=== PATIENT | male | born 1995 | race Caucasian/White ===

== ENCOUNTER 2020-04-06 15:53 | Observation (INO) | payer OTHER ==
[2020-04-06] MEDS ORDERED: Ondansetron PF 4 MG/2 ML Vial ONE (18:20)
[2020-04-06] MEDS ORDERED: Ondansetron PF 4 MG/2 ML Vial IVP PRN (18:25)
[2020-04-06] MEDS ORDERED: levETIRAcetam in NS 1,000 MG in Premix Bag 1 BAG IVPB SCH (18:30)
--- NOTE | 2020-04-06 18:34 | PDOC.HHP ---
Hospitalist HPI - History of Present Illness Seizure History of Present Illness: Patient is a 24-year-old male who is generally healthy and has no significant past medical history. Patient was walking through [employer] today where he was intending to by a soccer ball when he had the onset of generalized convulsions. He fell to the ground and hit his head. He was told he hit the back of his head but is sore over the right temporal area. The next thing he recalls is that he was waking up to the ambulance being there and starting an IV. The patient was initially taken to the [facility] emergency department. There he had a CT scan of the brain which showed 2 punctate areas in the right temporal area concerning for possible tiny bleeds. Neurosurgery was consulted via phone and recommended the patient be transferred to this facility. I have also recommended a repeat CT scan which will be done shortly. The patient reports that he has never had any prior history of seizures. He denies any prior history of significant head injury. He is unaware of having had any prior concussions. He felt completely normal up until the time of the seizure. Since he has been here he has had some nausea and vomiting and had some of this during the course of my interview with him. He denies having had any recent illness. He has been eating and drinking well. He denies any significant stressors. Hospitalist ROS - Review of Systems Constitutional: denies: fever, chills Respiratory: denies: shortness of breath Gastrointestinal: reports: nausea, vomiting. denies: abdominal pain Neurological: reports: seizures All other systems reviewed; all pertinent +/- noted in HPI/Subj - Medication Medications: None Hospitalist History - Past Medical History Source: patient, mother Other Medical History: Patient's mother recounts that the patient's father and his sister had some Ash's and that the son, the patient, had something similar when he was younger and required medicines but has not been on any for a long while. - Past Surgical History Past Surgical History: reports: no pertinent history - Family History Family History: reports: no pertinent history - Social History Smoking Status: Never smoker Alcohol: reports: Rare Drugs: reports: none - Exam General Appearance: NAD, awake alert General - other findings: Had some nausea vomiting during the interview. Eye: PERRL, anicteric sclera ENT: no oropharyngeal lesions, moist mucosa ENT - other findings: Tenderness to palpation over the right temporal area. ? slight edema Neck: supple, symmetric, no JVD, no thyromegaly, no lymphadenopathy, no carotid bruit Heart: RRR, no murmur, no gallops, no rubs, normal peripheral pulses Respiratory: CTAB, no wheezes, no rales, no ronchi, normal chest expansion, no tachypnea, normal percussion Gastrointestinal: soft, non-tender, non-distended, normal bowel sounds, no palpable masses, no hepatomegaly, no splenomegaly, no bruit Extremities: no cyanosis, no clubbing, no edema Skin: normal turgor Neurological: no focal deficits Musculoskeletal: normal tone, normal strength, no muscle wasting Psychiatric: normal affect, normal behavior, A&O x 3 Hospitalist Results - Labs Lab results: Labs reviewed from [facility] emergency department are essentially negative with exception of a CO2 of 20. Liver enzymes slightly elevated. Hospitalist H&P A/P - Problem (1) Seizure Code(s): R56.9 - UNSPECIFIED CONVULSIONS Status: Acute (2) Abnormal CT of brain Code(s): R90.89 - OTH ABNORMAL FINDINGS ON DIAGNOSTIC IMAGING OF CNSL Status: Acute (3) Elevated liver enzymes Code(s): R74.8 - ABNORMAL LEVELS OF OTHER SERUM ENZYMES Status: Acute (4) Head contusion Code(s): S00.93XA - CONTUSION OF UNSPECIFIED PART OF HEAD, INITIAL ENCOUNTER Status: Acute (5) Nausea & vomiting Code(s): R11.2 - NAUSEA WITH VOMITING, UNSPECIFIED Status: Acute - Plan Plan: Seizure: Patient has new onset seizure. Etiology is unclear. Patient does not appear to have any precipitating factors. He has no evidence of underlying illness. CT scan findings more likely related to the head contusion as a result of the fall from the seizure rather than the seizure itself. Labs were generally unremarkable other than slight elevation of his liver enzymes. He has no prior head injury to precipitate potential seizures. Will load with Keppra 1000 mg IV x1. Initiate Keppra 500 mg p.o. twice daily. MRI of the brain and EEG tomorrow. Neurology consult. Abnormal CT scan of the brain: Patient has a couple of punctate lesions on the right temporal area more likely related to punctate bleeds from right head contusion. Getting a repeat CT scan shortly. Neurosurgery following. Head contusion: Patient is applying ice. Would like some pain medication so we will give him some low-dose morphine. This is a result of injury from his fall. May have some concussion symptoms resulting in the nausea vomiting. Nausea vomiting: May be the result of the head contusion or seizure. Treat symptomatically. Elevated liver enzymes: Very mild elevation. We will repeat labs in the morning. If they continue to be elevated will need to consider an ultrasound. Possible he could have some contusion related to the fall.
--- NOTE | 2020-04-06 19:25 | CT ---
EXAM: CT brain without contrast HISTORY: New onset seizure with head trauma COMPARISON: 04/06/2020 5:35 PM TECHNIQUE: Multiple contiguous axial images were obtained and a CT of the brain without contrast. FINDINGS: There are stable areas of hyperdensity along the lateral aspect of the right middle cranial fossa. This could represent a small amount of extra-axial hemorrhage. No midline shift or downward herniation is seen. The calvarium and overlying soft tissues are unremarkable. The visualized paranasal sinuses and masto id air cells are well aerated. IMPRESSION: Likely small amount of stable extra-axial blood in the right middle cranial fossa.
[2020-04-06] MEDS ORDERED: levETIRAcetam in NS 100 ML ONE (19:52)
[2020-04-06] MEDS: Sodium Chloride 0.9% 1,000 ML IV SCH (20:00)
[2020-04-06] MEDS ORDERED: Famotidine 20 MG TAB ONE (21:54)
[2020-04-06] MEDS: Famotidine 20 MG TAB PO SCH (22:00)
[2020-04-06] MEDS ORDERED: Morphine 2 MG/ML VIAL ONE (22:11)
[2020-04-06] MEDS: levETIRAcetam 500 MG TAB PO SCH (22:16)
[2020-04-06] MEDS: Morphine 2 MG/ML VIAL SLOW IVP PRN (22:18)
[2020-04-07] MEDS ORDERED: Ondansetron PF 4 MG/2 ML Vial ONE (03:16)
[2020-04-07] MEDS ORDERED: Morphine 2 MG/ML VIAL ONE ×2 (03:16→09:53)
[2020-04-07] MEDS: Morphine 2 MG/ML VIAL SLOW IVP PRN ×2 (03:20→09:48)
[2020-04-07] MEDS: Ondansetron ODT 4 MG TAB PO PRN ×3 (03:22→14:57)
[2020-04-07 04:42] LABS: #Eosinphils 0.1 thou/uL (0.0-0.7); #Lymphocytes 1.3 thou/uL (1.20-3.40); #Monocytes 1.3 thou/uL (0.11-0.59); #Neutrophils 9.3 thou/uL (1.40-6.50); %Basophils 0.3 % (0.0-1.0); %Eosinophils 0.8 % (0.0-10.0); %Lymphocytes 10.6 % (21.0-51.0); %Neutrophils 77.3 % (42.0-75.0); Hemoglobin 15.2 g/dL (14.0-18.0); Mean Corpuscular HGB CONC 33.9 g/dL (32.0-36.0); Mean Corpuscular Hemoglobin 31.9 pg (27.0-31.0); Mean Corpuscular Volume 94.2 fL (78.0-98.0); Mean Platelet Volume 6.2 fL (7.4-10.4); Platelet Count 241 thou/uL (130-400); RBC Distribution Width 11.4 % (11.5-14.5); Red Blood Cell (RBC) Count 4.77 mill/uL (4.70-6.10)
[2020-04-07 05:05] LABS: ALT (SGPT) 55 U/L (8-55); AST (SGOT) 26 U/L (5-34); Albumin 4.1 g/dL (3.5-5.0); Alkaline Phosphatase 88 U/L (40-110); Anion Gap 11 mmol/L (10-20); BUN (Urea Nitrogen) 8 mg/dL (8.9-20.6); Bilirubin, Total 0.8 mg/dL (0.2-1.2); Calc. Creatinine Clearance 0 mL/min (70-130); Calcium 9.1 mg/dL (7.8-10.44); Carbon Dioxide 28 mmol/L (22-29); Chloride 101 mmol/L (98-107); Estimated GFR-MDRD Greater than 90; Globulin 2.4 g/dL (2.4-3.5); Glucose 109 mg/dL (70-105); Potassium 4.2 mmol/L (3.5-5.1); Protein, Total 6.5 g/dL (6.0-8.3); Sodium 136 mmol/L (136-145)
[2020-04-07 05:34] LABS: SARS-CoV-2 MS2 Positive; SARS-CoV-2 N Gene Negative; SARS-CoV-2 S Gene Negative; SARS-CoV-2 by NAA Not Detected (NotDetected); SARS-CoV-2 orf1ab Negative
[2020-04-07] MEDS: Sodium Chloride 0.9% 1,000 ML IV SCH (08:06)
--- NOTE | 2020-04-07 08:45 | PDOC.HOSPP ---
- Subjective Encounter Date: 04/07/20 Encounter Time: 11:00 Subjective: Patient with some mild blurred vision, slow thinking, and mild headache on and off. No further seizures. - Objective Result Diagrams: 04/07/20 04:31 04/07/20 04:31 Hospitalist ROS - Review of Systems Constitutional: denies: fever, chills, weakness Respiratory: denies: cough, shortness of breath Cardiovascular: denies: chest pain, palpitations Gastrointestinal: denies: nausea, vomiting, abdominal pain Musculoskeletal: denies: neck pain, back pain Neurological: denies: weakness, change in speech, confusion, seizures - Medication Medications: Active Medications Generic Name Dose Route Start Last Admin Trade Name Freq PRN Reason Stop Dose Admin Famotidine 20 mg 04/06/20 21:00 04/06/20 22:00 Famotidine 20 Mg Tab PO 20 mg BID CHENG Administration Sodium Chloride 1,000 mls @ 75 mls/hr 04/06/20 18:30 04/07/20 08:06 Normal Saline 0.9% IV 1,000 mls .[id number] CHENG Administration Levetiracetam 500 mg 04/06/20 21:00 04/06/20 22:16 Levetiracetam 500 Mg Tab PO 500 mg BID CHENG Administration Morphine Sulfate 2 mg 04/06/20 18:31 04/07/20 03:20 Morphine 2 Mg/Ml Vial SLOW IVP 2 mg Q4H PRN Administration Moderate to Severe Pain (6-10) Ondansetron HCl 4 mg 04/06/20 18:25 04/07/20 03:22 Ondansetron Odt 4 Mg Tab PO 4 mg Q6H PRN Administration Nausea/Vomiting Sodium Chloride 10 ml 04/06/20 21:00 04/06/20 22:19 Flush - Normal Saline 10 Ml Syringe IVF 10 ml Q12HR CHENG Administration - Exam General Appearance: NAD, awake alert ENT: moist mucosa Heart: RRR, no murmur, no gallops, no rubs Respiratory: CTAB, no wheezes, no rales, no ronchi Gastrointestinal: soft, non-tender, non-distended, normal bowel sounds Psychiatric: normal affect, normal behavior, A&O x 3 Hosp A/P (1) Seizure Code(s): R56.9 - UNSPECIFIED CONVULSIONS Status: Acute (2) Abnormal CT of brain Code(s): R90.89 - OTH ABNORMAL FINDINGS ON DIAGNOSTIC IMAGING OF CNSL Status: Acute (3) Head contusion Code(s): S00.93XA - CONTUSION OF UNSPECIFIED PART OF HEAD, INITIAL ENCOUNTER Status: Acute (4) Elevated liver enzymes Code(s): R74.8 - ABNORMAL LEVELS OF OTHER SERUM ENZYMES Status: Resolved (5) Nausea & vomiting Code(s): R11.2 - NAUSEA WITH VOMITING, UNSPECIFIED Status: Acute - Plan Seizure: Patient has new onset seizure. Etiology is unclear. Patient does not appear to have any precipitating factors. He has no evidence of underlying illness. CT scan findings more likely related to the head contusion as a result of the fall from the seizure rather than the seizure itself. Labs were generally unremarkable other than slight elevation of his liver enzymes. He has no prior head injury to precipitate potential seizures. Loaded with Keppra 1000 mg IV x1. Initiate Keppra 500 mg p.o. twice daily. MRI of the brain with traumatic contusion. Plan on EEG. Neurology consulted. Needs to f/u outpatient in 3-4 months to see if can wean off the Keppra. Abnormal CT scan of the brain: Patient has a couple of punctate lesions on the right temporal area more likely related to punctate bleeds from right head contusion. Repeat CT head unchanged. Neurosurgery following. Plan for repeat CT as an outpatient. Head contusion: Patient is applying ice. Would like some pain medication so we will give him some low-dose morphine and some oral meds. This is a result of injury from his fall. May have some concussion symptoms resulting in the nausea vomiting. Nausea vomiting: Likely due to concussion. Treat symptomatically. Elevated liver enzymes- normalized Very mild elevation. Resolved on recheck this AM.
[2020-04-07] MEDS ORDERED: Magnevist 469MG/ML 20 ML VIAL ONE (09:14)
--- NOTE | 2020-04-07 09:22 | MRI ---
MRI of thebrain with and without contrast: 04/07/2020 COMPARISON:Head CT 04/06/2020 HISTORY:Recent head trauma with intracranial hemorrhage, seizures TECHNIQUE: Multiplanar multisequence MR imaging of thebrain with and without contrast using a seizure protocol Findings:The diffusion weighted imaging demonstrates no evidence for acute infarction. Arterial flow voids at the axial level of the skull base appear unremarkable on the T2-weighted imagi ng. There are a few opacified mastoid air cells inferiorly bilaterally. There is mild mucosal thickening of the bilateral ethmoid air cells. No midline shift or mass effect is seen. No ventricular enlargement is noted. As seen on prior CT examinations there is persistent small volume extra-axial hemorrhage within the t emporal region laterally on the right, measuring up to 7 mm in transverse dimension and 5 mm in craniocaudal dimension on the coronal gradient echo imaging. Minimal adjacent increased T2 and FLAIR signal noted within the lateral right temporal lobe. There is minimal linear increased FLAIR signal within the anteromedial aspect of the left frontal lob e with subtle blooming artifact on the coronal gradient echo imaging consistent with minimal extra-axial hemorrhage in the left frontal region as well. There is minimal subjacent increased T2 an d FLAIR signal within the left frontal lobe suggesting mild associated frontal lobe contusion. The hippocampi appear grossly unremarkable. Postcontrast imaging demonstrates no abnormal enhancement within the brain parenchyma. There is mild diffuse dural enhancement, likely associated with reactive changes given bilateral extra-axial hemorrhage. There is very subtle increased T2 and FLAIR signal along the inferior aspect of the bilateral frontal lobes within the anterior cranial fossa bilaterally, evidence of bifrontal contusion. IMPRESSION:Small volume extra-axial hemorrhage noted in the lateral right temporal region and in the anteromedial left frontal region with findings suggesting subtle bifrontal contusion and probable right temporal lobe contusion.
[2020-04-07] MEDS: Famotidine 20 MG TAB PO SCH ×2 (09:48→19:49)
[2020-04-07] MEDS: levETIRAcetam 500 MG TAB PO SCH ×2 (09:48→19:49)
[2020-04-07] MEDS ORDERED: Ondansetron ODT 4 MG TAB ONE ×3 (09:52→14:43)
[2020-04-07] MEDS ORDERED: Famotidine 20 MG TAB ONE (09:52)
--- NOTE | 2020-04-07 13:12 | CON ---
NEUROLOGY CONSULTATION DATE OF CONSULTATION: 04/07/2020 REASON FOR CONSULTATION: New-onset seizure. HISTORY OF PRESENT ILLNESS: Mr. Ha Chester is a 24-year-old male with no significant past medical history, presented with a new-onset seizure. Per the patient, [place] [employer] [place] when he felt dizzy and fell to the ground and hit his head. He had a generalized tonic-clonic seizure and he felt extremely sore in the right temporal region. He woke up in the ambulance where he was given intravenous fluids. Head CT was done, which showed 2 punctate areas of right temporal region with tiny bleed. Neurosurgery was consulted by phone and they recommended the patient to be transferred [facility] for further evaluation. The patient denies any prior history of seizures or history of seizures as a child. The patient is a product of normal and denies any staring spells or seizures in the past. There is no family history of epilepsy. He does not have any head injury with loss of consciousness for more than 24 hours. The patient does have nausea, vomiting, and headache since he hit on the head. The patient denies focal weakness, focal paresthesias, double vision, loss of vision, or vertigo associated with the episode. REVIEW OF SYSTEMS: All systems reviewed and were negative except the pertinent positives and negatives mentioned in the HPI. PRIOR MEDICATIONS: None. PAST MEDICAL HISTORY: No significant past medical history. PAST SURGICAL HISTORY: No significant past surgical history. FAMILY HISTORY: Significant for Ash disease in the patient's father and sister. The patient also had similar symptoms when he was young, but has not been on any medication for a long time. SOCIAL HISTORY: The patient denies smoking, alcohol, or illegal drug use. ALLERGIES: NKDA PHYSICAL EXAMINATION: 128/70 88 18 General Appearance: NAD, awake alert General - other findings: Had some nausea vomiting during the interview. Eye: PERRL, anicteric sclera ENT: no oropharyngeal lesions, moist mucosa ENT - other findings: Tenderness to palpation over the right temporal area. ? slight edema Neck: supple, symmetric, no JVD, no thyromegaly, no lymphadenopathy, no carotid bruit Heart: RRR, no murmur, no gallops, no rubs, normal peripheral pulses Respiratory: CTAB, no wheezes, no rales, no ronchi, normal chest expansion, no tachypnea, normal percussion Gastrointestinal: soft, non-tender, non-distended, normal bowel sounds, no palpable masses, no hepatomegaly, no splenomegaly, no bruit Extremities: no cyanosis, no clubbing, no edema Skin: normal turgor Neurological: Mental status, the patient is alert and oriented to person, place, and time. Recent and remote memory intact. Fund of knowledge is appropriate. Speech is clear. Cranial nerves 2 through 12 intact. Motor, muscle tone and bulk are normal. Strength 5/5 bilaterally. Sensory intact. Cerebellar, finger-nose testing intact. Gait deferred due to the patient's safety reason DATA REVIEWED: I reviewed the CT scan, which showed 2 areas of small punctate hemorrhage in the right temporal region. MRI of the brain showed hemorrhage in the right temporal region most likely secondary to a fall. Active Medications Generic Name Dose Route Start Last Admin Trade Name Freq PRN Reason Stop Dose Admin Famotidine 20 mg 04/06/20 21:00 04/06/20 22:00 Famotidine 20 Mg Tab PO 20 mg BID CHENG Administration Sodium Chloride 1,000 mls @ 75 mls/hr 04/06/20 18:30 04/07/20 08:06 Normal Saline 0.9% IV 1,000 mls .[id number] CHENG Administration Levetiracetam 500 mg 04/06/20 21:00 04/06/20 22:16 Levetiracetam 500 Mg Tab PO 500 mg BID CHENG Administration Morphine Sulfate 2 mg 04/06/20 18:31 04/07/20 03:20 Morphine 2 Mg/Ml Vial SLOW IVP 2 mg Q4H PRN Administration Moderate to Severe Pain (6-10) Ondansetron HCl 4 mg 04/06/20 18:25 04/07/20 03:22 Ondansetron Odt 4 Mg Tab PO 4 mg Q6H PRN Administration Nausea/Vomiting Sodium Chloride 10 ml 04/06/20 21:00 04/06/20 22:19 Flush - Normal Saline 10 Ml Syringe IVF 10 ml Q12HR CHENG Administration ASSESSMENT AND PLAN: (1) Seizure Code(s): R56.9 - UNSPECIFIED CONVULSIONS Status: Acute (2) Abnormal CT of brain Code(s): R90.89 - OTH ABNORMAL FINDINGS ON DIAGNOSTIC IMAGING OF CNSL Status: Acute (3) Elevated liver enzymes Code(s): R74.8 - ABNORMAL LEVELS OF OTHER SERUM ENZYMES Status: Acute (4) Head contusion Code(s): S00.93XA - CONTUSION OF UNSPECIFIED PART OF HEAD, INITIAL ENCOUNTER Status: Acute (5) Nausea & vomiting Code(s): R11.2 - NAUSEA WITH VOMITING, UNSPECIFIED Status: Acute Mr. Ha Chester is a 24-year-old male presented with a new-onset seizure. No precipitating factors apparent from the history. He did have right temporal hemorrhage on MRI of the brain secondary to a fall, which can trigger further seizures. He was already loaded with Keppra 1 g IV yesterday and we will start him on a maintenance dose of 500 mg twice daily. Observe seizure precautions. Ativan 2 mg IV for seizure greater than 2 minutes. Neuro checks every 4 hours. Continue medical management per primary team. EEG to rule out underlying cortical irritability, which may require adjustment of the medications. He should follow up with a neurologist in 3-4 months. Plan discussed in detail with the patient and the mother at bedside. We will continue to follow. Thank you for the consult. Job ID: [id number] MTDD
--- NOTE | 2020-04-07 13:46 | CON ---
DATE OF CONSULTATION: CHIEF COMPLAINT: Fall with seizure-like activity. HISTORY OF PRESENT ILLNESS: Mr. Chester is a 24-year-old male, who presented to [facility] Emergency Department yesterday afternoon after experiencing a fall with seizure activity. Per report, the patient [place] [employer] [place], he stopped and grimaced and then fell to the ground and struck his head followed by tonic clonic seizure activity. Initially, the patient was postictal, however, with time, his neurologic exam improved and he had no focal neurologic deficits. CT of the brain was completed which demonstrated two small punctate hyperdensities in the right temporal region. No overlying skull fracture. The patient was transferred to [facility] in [place] for further monitoring and admission for seizure workup. Repeat CT of the brain was completed 6 hours later, which demonstrated no increase in the right temporal bleed size. IMPRESSION AND DIAGNOSES: 1. Suspected seizures. 2. Fall with a small right temporal punctate hemorrhage. PLAN: The patient will be admitted for further seizure workup. He is pending completion of an MRI of the brain and EEG. As noted above, his repeat CT of the brain remained stable. Likely, plan will be for repeat CT of the brain in 4 weeks to assess for resolution of the bleed. Our team will see the patient and perform a formal examination. Please call for any neurologic changes or other concerns. Job ID: [id number]
[2020-04-07] MEDS ORDERED: Acetaminophen 500 MG TAB ONE (14:18)
[2020-04-07] MEDS: Acetaminophen 500 MG TAB PO PRN ×2 (14:56→22:46)
--- NOTE | 2020-04-07 15:20 | PDOC.EEG ---
Neurology EEG Report - Report Report: This EEG was performed using 24 channel [employer] video digital EEG machine with 24 disc electrodes. This was an extended 2 hours 5 minutes of EEG recording. Digital analysis of the EEG was done for Philip and seizure detection which revealed no abnormalities. Background: The posterior background rhythm is 9-10 Hz. The posterior background rhythm attenuates with eye opening and enhances with eye closure. Photic stimulation: Bioccipital symmetric driving response seen with photic stimulation. Hyperventilation: Not performed. Sleep: Drowsiness and sleep are observed EEG diagnosis: Normal awake ,drowsy and sleep EEG.
[2020-04-07] MEDS ORDERED: traMADol HCl 50 MG TAB PO PRN (19:15)
[2020-04-07 19:28] VITALS: BMI 25.1
[2020-04-07] MEDS ORDERED: Melatonin 3 MG TAB PO PRN (22:42)
[2020-04-07] MEDS: traMADol HCl 50 MG TAB PO PRN (23:46)
--- NOTE | 2020-04-08 07:21 | PDOC.HOSPP ---
- Subjective Encounter Date: 04/08/20 Encounter Time: 09:00 Subjective: Patient with headache mildly improved today. Headache well controlled with Tramadol last night. - Objective Vital Signs & Weight: Vital Signs (12 hours) Temp Pulse Resp BP BP Pulse Ox 04/08/20 04:50 97.6 F 61 18 100/56 L 98 04/07/20 23:47 97.4 F L 52 L 18 109/72 99 04/07/20 19:57 97.9 F 67 18 112/76 98 Weight Weight 165 lb 3 oz I&O: 04/07/20 04/08/20 04/09/20 06:59 06:59 06:59 Intake Total 1400 Balance 1400 Result Diagrams: 04/07/20 04:31 04/07/20 04:31 Hospitalist ROS - Review of Systems Constitutional: denies: fever, chills Respiratory: denies: cough, shortness of breath Cardiovascular: denies: chest pain, palpitations Gastrointestinal: denies: nausea, vomiting, abdominal pain - Medication Medications: Active Medications Generic Name Dose Route Start Last Admin Trade Name Freq PRN Reason Stop Dose Admin Acetaminophen 1,000 mg 04/07/20 14:07 04/07/20 22:46 Acetaminophen 500 Mg Tab PO 1,000 mg Q6H PRN Administration Moderate to Severe Pain (6-10) Famotidine 20 mg 04/06/20 21:00 04/07/20 19:49 Famotidine 20 Mg Tab PO 20 mg BID CHENG Administration Sodium Chloride 1,000 mls @ 75 mls/hr 04/06/20 18:30 04/07/20 08:06 Normal Saline 0.9% IV 1,000 mls .[id number] CHENG Administration Levetiracetam 500 mg 04/06/20 21:00 04/07/20 19:49 Levetiracetam 500 Mg Tab PO 500 mg BID CHENG Administration Melatonin 3 mg 04/07/20 22:42 04/07/20 22:47 Melatonin 3 Mg Tab PO 3 mg HS PRN Administration Insomnia Ondansetron HCl 4 mg 04/06/20 18:25 04/07/20 14:57 Ondansetron Odt 4 Mg Tab PO 4 mg Q6H PRN Administration Nausea/Vomiting Sodium Chloride 10 ml 04/06/20 21:00 11/16/20 19:50 Flush - Normal Saline 10 Ml Syringe IVF 10 ml Q12HR CHENG Administration Tramadol HCl 50 mg 04/07/20 19:15 04/07/20 19:49 Tramadol Hcl 50 Mg Tab PO 50 mg Q4H PRN Administration PAIN SCALE 1-5 Tramadol HCl 100 mg 04/07/20 19:15 04/07/20 23:46 Tramadol Hcl 50 Mg Tab PO 100 mg Q4H PRN Administration PAIN SCALE 6-10 - Exam General Appearance: NAD, awake alert ENT: moist mucosa Heart: RRR, no murmur, no gallops, no rubs Respiratory: CTAB, no wheezes, no rales, no ronchi Gastrointestinal: soft, non-tender, non-distended, normal bowel sounds Psychiatric: normal affect, normal behavior, A&O x 3 Hosp A/P (1) Seizure Code(s): R56.9 - UNSPECIFIED CONVULSIONS Status: Acute (2) Abnormal CT of brain Code(s): R90.89 - OTH ABNORMAL FINDINGS ON DIAGNOSTIC IMAGING OF CNSL Status: Acute (3) Head contusion Code(s): S00.93XA - CONTUSION OF UNSPECIFIED PART OF HEAD, INITIAL ENCOUNTER Status: Acute (4) Elevated liver enzymes Code(s): R74.8 - ABNORMAL LEVELS OF OTHER SERUM ENZYMES Status: Resolved (5) Nausea & vomiting Code(s): R11.2 - NAUSEA WITH VOMITING, UNSPECIFIED Status: Acute (6) Brain contusion Code(s): S06.2X9A - DIFFUSE TBI W LOSS OF CONSCIOUSNESS OF UNSP DURATION, INIT Status: Acute - Plan Seizure: Patient has new onset seizure. Etiology is unclear. Patient does not appear to have any precipitating factors. He has no evidence of underlying illness. CT scan findings more likely related to the head contusion as a result of the fall from the seizure rather than the seizure itself. Labs were generally unremarkable other than slight elevation of his liver enzymes. He has no prior head injury to precipitate potential seizures. Loaded with Keppra 1000 mg IV x1. Initiate Keppra 500 mg p.o. twice daily. MRI of the brain with traumatic contusion. EEG negative for seizure activity. Neurology consulted. Needs to f/u outpatient in 3-4 months to see if can wean off the Keppra. Cleared for d/c by neurology and neurosurgery. Abnormal CT scan of the brain: Patient has a couple of punctate lesions on the right temporal area more likely related to punctate bleeds from right head contusion. Repeat CT head unchanged. Neurosurgery following. Plan for repeat CT as an outpatient in 4 weeks. Head contusion: Patient is applying ice. Switched to Tramadol from Morphine. This is a result of injury from his fall. May have some concussion symptoms resulting in the nausea vomiting. Nausea vomiting: Likely due to concussion. Treat symptomatically. Elevated liver enzymes- normalized Very mild elevation. Resolved on recheck this AM. Mother wasn't comfortable taking him home late in the day yesterday. Plan to d/c home this morning.
[2020-04-08 08:10] VITALS: BP 117/78; TEMP 97.7
[2020-04-08] MEDS: levETIRAcetam 500 MG TAB PO SCH (09:31)
[2020-04-08] MEDS: Famotidine 20 MG TAB PO SCH (09:31)
[2020-04-08] MEDS: traMADol HCl 50 MG TAB PO PRN (10:05)
[2020-04-08] MEDS: Sodium Chloride 0.9% 1,000 ML IV SCH (10:43)
--- NOTE | 2020-04-08 13:18 | PRG ---
DATE OF SERVICE: 04/08/2020 Mr. Chester was admitted for first-time seizure. He has been placed on Keppra 500 mg twice daily by Neurology and has followup arranged with Dr. Hanna in [address] demonstrates a small right temporal hemorrhage. MRI was nonlesional. We are arranging for a followup head CT with us in 1 month. I will defer antiepileptics to our Neurology team. There is one seizure. Job ID: [id number]
--- NOTE | 2020-04-09 02:56 | DIS ---
DATE OF ADMISSION: 04/06/2020 DATE OF DISCHARGE: 04/08/2020 PRIMARY CARE PHYSICIAN: Makenzie Nobles. REASON FOR ADMISSION: Seizure with head trauma. DIAGNOSES AT DISCHARGE: 1. New onset seizure, single episode. 2. Head contusion with concussion and cerebral contusion with mild bleeding. PROCEDURES: 1. CT of the brain without contrast showing a likely small amount of stable extra-axial blood in the right middle cranial fossa. Repeat CT the next day was unchanged. 2. MRI of the brain with and without contrast showing small volume extra-axial hemorrhage noted in the lateral right temporal region and the anterior medial left frontal region with findings suggestive of subtle bifrontal contusion and probable right temporal lobe contusion. 3. EEG showing a normal awake, drowsy, and sleep EEG. CONSULTATIONS: 1. Neurology, Dr. Burton. 2. Neurosurgery, Dr. Aguilar. SUMMARY OF HOSPITAL COURSE: This is a 24-year-old male without significant past medical history, who was walking in the store when he had a sudden onset of generalized convulsions, fell to the ground and hit his head on the hard tile. The patient was brought to the [facility], had a CT of the brain which showed some area of possible hemorrhage. Neurosurgery was consulted and recommended he be transferred here. The patient had some nausea and vomiting done in the emergency room, this resolved with medications. He had persistent headache and a little bit of blurred vision and fuzziness of thinking during his hospital stay. He was evaluated by Neurology and Neurosurgery, and he was started on Keppra. The patient had no further seizures. He had slow improvement in his concussion symptoms. Repeat imaging as above. He was cleared for discharge by Neurology and Neurosurgery and is being discharged home. DISCHARGE MANAGEMENT: DISPOSITION: Discharged home. ACTIVITY: As tolerated. No driving for three months. He can resume light mental and physical activity after no more symptoms of his concussion. DIET: Regular diet. FOLLOWUP: Follow up with primary care physician in 7 days. He will need to get clearance before return to his normal activities. Follow up with Neurosurgery, Dr. Aguilar in 4 weeks for a repeat CT of the brain and follow up with Dr. Castaneda in 3 months to assess whether he can stop the seizure medication. DISCHARGE MEDICATIONS: 1. Keppra 500 mg twice a day, 60 tablets dispensed with two refills. 2. Tramadol 50 mg, 1 to 2 tablets every 6 hours as needed for pain, 30 tablets dispensed. 3. He can also take Extra Strength Tylenol 1-2 tablets every 6 hours as needed for pain. 4. Zofran 4 mg every 6 hours as needed for nausea and vomiting, 15 tablets dispensed. Job ID: [id number] [id number]
== END 2020-04-08 10:42 | disposition home or self-care (01) ==
LOC: ERS 15:53 → ERHOLD 18:14 → 2SE 04-07 16:36
PROVIDERS: ADMIT Internal Medicine; ATTEND Emergency Medicine
DX: R56.9 Unspecified convulsions (principal); S06.339A Contusion and laceration of cerebrum, unspecified, with loss of consciousness of unspecified duration, initial encounter; R11.2 Nausea with vomiting, unspecified; R78.4 Finding of other drugs of addictive potential in blood; Z79.899 Other long term (current) drug therapy; Z20.828 Contact with and (suspected) exposure to other viral communicable diseases; W18.30XA Fall on same level, unspecified, initial encounter; Y92.219 Unspecified school as the place of occurrence of the external cause
CPT/HCPCS: 36415; 70450; 70553; 80053; 84146; 85025; 87635; 95712; 95819; 95957; 96374; 96375; A9579; G0378; J1953; J2270; J2405; Q0162; U0003